=== PATIENT | female | born 1970 | race Caucasian/White ===

== ENCOUNTER → 2017-03-23 | Outpatient (CLI) | payer BC ==
--- NOTE | 2017-03-23 12:07 | WWHP ---
[facility] - HISTORY AND PHYSICAL CHIEF COMPLAINT: The patient is here for her routine gynecologic exam and mammogram. HPI: This is a 46-year-old G0 with an LMP of 2010. The patient is without gynecologic complaints and denies any postmenopausal bleeding. PAST MEDICAL HISTORY: Chronic hypertension and mild gastritis. History of osteopenia. MEDICATIONS: 1. Ziac generic 1 daily. 2. Multivitamin daily. ALLERGIES: Allergies to PENICILLIN. PAST SURGICAL HISTORY: Laparoscopic appendectomy 2007, pilonidal cyst removed 2005. 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 SOCIAL HISTORY: She denies tobacco and drug use and socially drinks alcohol. 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 FAMILY HISTORY: Mother of a pneumonia, which led to a pulmonary embolus at age 37. Grandfather had heart disease. REVIEW OF SYSTEMS: She has lost about 9 pounds over the last year. She denies respiratory, cardiac or GI problems. PHYSICAL EXAM: Blood pressure 124/75, height 5 feet 2 inches, weight 213, BMI 39, temperature 96.5, pulse 64. This is a well-developed, heavyset white female, who is alert and oriented x3, in no acute distress. HEENT is within normal limits. NECK: Supple without mass or thyromegaly. CHEST AND LUNGS: Clear to auscultation. HEART: Regular rate and rhythm. Breasts are without mass or discharge. Axillary exam is negative for adenopathy. BACK: Negative for CVA tenderness. ABDOMEN: Mildly obese, soft, nontender, without palpable masses. PELVIC EXAM: External genitalia has 4 dermal epithelial inclusion cysts in the left labia, each measuring approximately 9 mm. These are nontender and nonerythematous. The patient states she has had them there for a long time and are not painful. External genitalia is otherwise unremarkable. There is minimal atrophy. Cervix and vagina reveals mild atrophy. The cervix is nulliparous and mildly stenotic. There is no evidence of prolapse. The uterus is mid position, nongravid size and nontender. There are no palpable adnexal masses or tenderness. Rectal exam is negative for mass or tenderness and is negative for occult blood. EXTREMITIES: Nontender. IMPRESSION: 1. A 46-year-old menopausal female with benign appearing vulvar inclusion cysts and otherwise unremarkable gynecologic exam. 2. History of osteopenia. PLAN: 1. Pap smear was performed. 2. Self-breast examination was discussed. 3. Mammogram will be done today. 4. Osteoporosis prevention was discussed. I have recommended bone density testing because of her early menopause and because of her history of osteopenia and a slip was given to the patient for this. 5. Diet and exercise were discussed for weight control. 6. She will return in 1 year. MMODL / IJN: [id number] /
--- NOTE | 2017-03-24 10:08 | MM ---
Reason for exam: screening (asymptomatic). Last mammogram was performed 1 year and 1 month ago. History: Patient is postmenopausal and is nulliparous. Took hormonal contraceptives beginning at age 18. Physical Findings: A clinical breast exam by your physician is recommended on an annual basis and results should be correlated with mammographic findings. MG Screening Mammo w CAD Bilateral CC and MLO view(s) were taken. Prior study comparison: February 11, 2016, bilateral MG screening mammo w CAD. February 05, 2015, bilateral MG screening mammo w CAD. The breast tissue is heterogeneously dense. This may lower the sensitivity of mammography. Finding: There are typically benign round, linear calcifications in both breasts. There is a chronic nodularity bilaterally. There is no discrete abnormality. ASSESSMENT: Benign, BI-RAD 2 RECOMMENDATION: Routine screening mammogram of both breasts in 1 year.
== END | disposition home or self-care (01) ==
LOC: WWCWWP 10:32
PROVIDERS: ATTEND Obstetrics & Gynecology
DX: Z12.31 Encounter for screening mammogram for malignant neoplasm of breast (principal)

== ENCOUNTER → 2018-05-25 | Outpatient (CLI) | payer BC ==
[2018-05-25 10:50] VITALS: BP 131/85; PULSE 71; TEMP 98.4; BMI 38.4
--- NOTE | 2018-05-25 11:18 | P.HPOB ---
History of Present Illness H&P Date: 05/25/18 Chief Complaint: The patient is here for her routine gynecologic exam and mammogram. This is a 47-year-old G0 within LMP 2010. The patient is without gynecologic complaints and denies any postmenopausal bleeding. The patient had an early bone density test done in 2010 because of the early menopausal change and this showed osteopenia. Repeating the bone density testing was recommended last year , but she did not have it done. She states she will do it this year. Review of Systems The patient has lost 3 pounds over the last year. She denies respiratory, cardiac, or G.I. problems. Past Medical History Past Medical History: Hypertension Additional Past Medical History / Comment(s): Osteopenia. 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 Early menopause at age 40. 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 Medications and Allergies Home Medications Medication Instructions Recorded Confirmed Type Bisoprolol-Hctz 10-6.25 mg [Ziac 10 mg PO DAILY 05/25/18 05/25/18 History 10-6.25 MG] Allergies Allergy/AdvReac Type Severity Reaction Status Date / Time Penicillins AdvReac Severe Rash/Hives Unverified 05/25/18 10:41 Exam Vital Signs Temp Pulse BP 05/25/18 10:46 98.4 F 71 131/85 Intake and Output 05/24/18 05/25/18 05/25/18 22:59 06:59 14:59 Other: Weight 95.254 kg Height 5'2", weight 210 pounds, BMI 38.4. This is a well-developed well-nourished heavyset white female who is alert and oriented times 3 in no acute distress. HEENT: Within normal limits. NECK: Supple without mass or thyromegaly. CHEST AND LUNGS: Clear to auscultation. HEART: Regular rate and rhythm. BREASTS: Are without mass or discharge. AXILLARY EXAM: Negative for adenopathy. BACK: Negative for CVA tenderness. ABDOMEN: Soft, mildly obese, nontender, without palpable masses. PELVIC EXAM: external genitalia has 4 epithelial inclusion cysts in the left labia, each measuring approximately 9 mm. These are nontender and non- erythematous. This is unchanged from her previous exam and she states she has had them for a long time. Cervix and vagina appear normal with mild atrophy. There is no unusual discharge. There is no evidence of prolapse. The uterus is midposition, nongravid size and nontender. There are no palpable adnexal masses or tenderness. RECTAL EXAM: negative for mass or tenderness and is negative for occult blood. EXTREMITIES: Nontender. IMPRESSION: 1. 47-year-old menopausal female with stable benign appearing vulvar inclusion cysts and otherwise unremarkable gynecologic exam. 2. History of osteopenia. 3. History of early menopause at age 40. PLAN: 1. Pap smear was deferred since she had a normal one less than 2 years ago. 2. Self breast awareness was discussed with the patient. 3. Screening mammogram will be done today. 4. Osteoporosis prevention was discussed. I have stressed the importance of adequate calcium, vitamin D and regular exercise. Recommended amounts of calcium and vitamin D were also discussed. I have recommended repeating the bone density test since it has been more than 7 years since her last one, which showed osteopenia. The order slip was given to the patient for this. 5. She will return in one year.
--- NOTE | 2018-05-28 13:03 | MM ---
Reason for exam: screening (asymptomatic). Last mammogram was performed 1 year and 2 months ago. History: Patient is postmenopausal and is nulliparous. Took hormonal contraceptives beginning at age 18. MG Screening Mammo w CAD Bilateral CC and MLO view(s) were taken. Prior study comparison: March 23, 2017, bilateral MG screening mammo w CAD. February 11, 2016, bilateral MG screening mammo w CAD. The breast tissue is heterogeneously dense. This may lower the sensitivity of mammography. Chronic nodularity in the right breast. There are increasing secretory calcifications upper outer quadrants of both breasts. No significant changes when compared with prior studies. ASSESSMENT: Benign, BI-RAD 2 RECOMMENDATION: Routine screening mammogram of both breasts in 1 year.
== END | disposition home or self-care (01) ==
LOC: WWCWWP 10:27
PROVIDERS: ATTEND Obstetrics & Gynecology
DX: Z12.31 Encounter for screening mammogram for malignant neoplasm of breast (principal)
CPT/HCPCS: 77067

== ENCOUNTER → 2019-06-21 | Outpatient (CLI) | payer BC ==
--- NOTE | 2019-06-22 12:10 | MM ---
Reason for exam: screening (asymptomatic). Last mammogram was performed 1 year and 1 month ago. History: Patient is postmenopausal and is nulliparous. Took hormonal contraceptives beginning at age 18. Physical Findings: A clinical breast exam by your physician is recommended on an annual basis and results should be correlated with mammographic findings. MG Screening Mammo w CAD Bilateral CC and MLO view(s) were taken. Prior study comparison: May 25, 2018, bilateral MG screening mammo w CAD. March 23, 2017, bilateral MG screening mammo w CAD. The breast tissue is heterogeneously dense. This may lower the sensitivity of mammography. No suspicious abnormality on the right breast. Left upper outer quadrant middle depth architectural distortion. ASSESSMENT: Incomplete: need additional imaging evaluation, BI-RAD 0 RECOMMENDATION: Special view mammogram of the left breast. If lesion persists on supplemental views, image directed ultrasound is recommended. [facility] will attempt to contact patient to return for supplemental views and ultrasound if indicated.
== END | disposition home or self-care (01) ==
LOC: WWCWWP 10:12
PROVIDERS: ATTEND Obstetrics & Gynecology
DX: Z12.31 Encounter for screening mammogram for malignant neoplasm of breast (principal)
CPT/HCPCS: 77067

== ENCOUNTER → 2019-07-04 | Outpatient (CLI) | payer BC ==
--- NOTE | 2019-07-04 09:52 | MM ---
Reason for exam: additional evaluation requested from abnormal screening. Last mammogram was performed less than 1 month ago. History: Patient is postmenopausal and is nulliparous. Took hormonal contraceptives beginning at age 18. Physical Findings: Nurse did not find any significant physical abnormalities on exam. MG 3D Work Up W/Cad LT Spot compression CC, spot compression MLO, and LM view(s) were taken of the left breast. Prior study comparison: June 21, 2019, bilateral MG screening mammo w CAD. May 25, 2018, bilateral MG screening mammo w CAD. The breast tissue is heterogeneously dense. This may lower the sensitivity of mammography. Benign appearing calcifications in the left breast. The previously seen abnormality resolves on additional views and appears as fibroglandular tissue compatible with summation. No suspicious abnormality. These results were verbally communicated with the patient and result sheet given to the patient on 07/04/19. ASSESSMENT: Benign, BI-RAD 2 RECOMMENDATION: Return to routine screening mammogram schedule for both breasts.
== END ==
LOC: RADMAMWWP 08:40
PROVIDERS: ATTEND Obstetrics & Gynecology
DX: R92.8 Other abnormal and inconclusive findings on diagnostic imaging of breast (principal)
CPT/HCPCS: 77061; 77065

== ENCOUNTER → 2019-07-19 | Outpatient (CLI) | payer BC ==
[2019-07-19 09:36] VITALS: BP 123/85; PULSE 61; RESP 18; TEMP 98.1
--- NOTE | 2019-07-19 10:11 | P.HPOB ---
History of Present Illness H&P Date: 07/19/19 Chief Complaint: The patient is here for her routine gynecologic exam. This is a 48-year-old G0 with an LMP of 2010. The patient is without gynecologic complaints and denies any postmenopausal bleeding. Review of Systems The patient has gained 22 pounds over the last year. She attributes this to the less activity. She denies respiratory, cardiac, or G.I. problems. Past Medical History Past Medical History: Hypertension Additional Past Medical History / Comment(s): Osteopenia. 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 Early menopause at age 40. 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 Medications and Allergies Home Medications Medication Instructions Recorded Confirmed Type Bisoprolol-Hctz 10-6.25 mg [Ziac 10 mg PO DAILY 05/25/18 07/19/19 History 10-6.25 MG] Multivitamin [Multivitamins Adult 1 each PO DAILY 07/19/19 07/19/19 History Gummies] Allergies Allergy/AdvReac Type Severity Reaction Status Date / Time Penicillins AdvReac Severe Rash/Hives Unverified 07/19/19 09:36 Exam Vital Signs Temp Pulse Resp BP Pulse Ox 07/19/19 09:26 98.1 F 61 18 123/85 98 Intake and Output 07/18/19 07/19/19 07/19/19 22:59 06:59 14:59 Other: Weight 105.233 kg Height 5 feet 4 inches, weight 232 pounds, BMI 39.8. This is a well-developed well-nourished heavyset white female who is alert and oriented times 3 in no acute distress. HEENT: Within normal limits. NECK: Supple without mass or thyromegaly. CHEST AND LUNGS: Clear to auscultation. HEART: Regular rate and rhythm. BREASTS: Are without mass or discharge. AXILLARY EXAM: Negative for adenopathy. BACK: Negative for CVA tenderness. ABDOMEN: Soft, obese, nontender, without palpable masses. PELVIC EXAM: The external genitalia reveals four benign-appearing inclusion cysts each measuring about 9 mm. These are stable from her previous exam. Cervix and vagina appear normal. There is no unusual discharge. There is no evidence of prolapse. The uterus is midposition, nongravid size and nontender. There are no palpable adnexal masses or tenderness. RECTAL EXAM: negative for mass or tenderness and is negative for occult blood. EXTREMITIES: Nontender. IMPRESSION: 1. 48-year-old menopausal female with normal gynecologic exam. 2. History of osteopenia. 3. Weight gain. PLAN: 1. Pap smear was performed. 2. Self breast awareness was discussed with the patient. 3. Screening mammogram was recently done on 06/21/2019 and did require a left breast workup which was benign. Mammogram will be repeated in 1 year. 4. Osteoporosis prevention was discussed. I have stressed the importance of adequate calcium, vitamin D and regular exercise. Recommended amounts of calcium and vitamin D were also discussed. I recommended repeating a bone density testing and the order slip was given to the patient for this. 5. Weight control was discussed. I have stressed the importance of good nutrition and regular exercise. I have also recommended that she not skip meals and she should try to get adequate amounts of fiber in her diet. 6. She was advised to return in one year for her annual well woman exam.
--- NOTE | 2019-08-01 12:00 | P.PN ---
Progress Note - Text Progress Note Date: 08/01/19 OUTPATIENT FOLLOW-UP NOTE TEST(S)/RESULTS: Pap smear on 07/19/2019 was negative. METHOD OF NOTIFICATION: A message was left on the patient's voice mail with this result results. PATIENT COMMENTS: DIAGNOSIS: Negative Pap smear DISCUSSION: PLAN: She was advised to return in one year for her annual well woman exam.
== END | disposition home or self-care (01) ==
LOC: WWCWWP 09:10
PROVIDERS: ATTEND Obstetrics & Gynecology
DX: Z53.9 Procedure and treatment not carried out, unspecified reason (principal)

== ENCOUNTER → 2020-10-01 | Outpatient (CLI) | payer BC ==
[2020-10-01 10:48] VITALS: BP 135/90; PULSE 74; RESP 18; TEMP 98.1
--- NOTE | 2020-10-01 11:31 | P.HPOB ---
History of Present Illness H&P Date: 10/01/20 Chief Complaint: The patient is here for her routine gynecologic exam and ma mmogram. This is a 58-year-old G0 with an LMP of 2010. The patient is without gynecologic complaints and denies any postmenopausal bleeding. Review of Systems The patient's weight has been stable over the last year. She denies respiratory, cardiac, or G.I. problems. Past Medical History Past Medical History: Hypertension Additional Past Medical History / Comment(s): Osteopenia. 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 Early menopause at age 40. 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 Medications and Allergies Home Medications Medication Instructions Recorded Confirmed Type Bisoprolol-Hctz 10-6.25 mg [Ziac 10 mg PO DAILY 05/25/18 07/19/19 History 10-6.25 MG] Multivitamin [Multivitamins Adult 1 each PO DAILY 07/19/19 07/19/19 History Gummies] Allergies Allergy/AdvReac Type Severity Reaction Status Date / Time Penicillins AdvReac Severe Rash/Hives Unverified 10/01/20 10:48 Exam Vital Signs Temp Pulse Resp BP Pulse Ox 10/01/20 10:42 98.1 F 74 18 135/90 97 Intake and Output 09/30/20 10/01/20 10/01/20 22:59 06:59 14:59 Other: Weight 105.687 kg Height 5 feet 3 inches, weight 233 pounds, BMI 41.3. This is a well-developed well-nourished heavyset white female who is alert and oriented times 3 in no acute distress. HEENT: Within normal limits. NECK: Supple without mass or thyromegaly. CHEST AND LUNGS: Clear to auscultation. HEART: Regular rate and rhythm. BREASTS: Are without mass or discharge. AXILLARY EXAM: Negative for adenopathy. BACK: Negative for CVA tenderness. ABDOMEN: Soft, nontender, without palpable masses. PELVIC EXAM: External genitalia reveals mild atrophy with 6 left labia majora benign-appearing inclusion cysts each measuring 0.5-1.0 cm. These are nontender and noninflamed. Cervix and vagina appear normal with mild atrophy. There is no unusual discharge. There is no evidence of prolapse. The uterus is midposition, nongravid size and nontender. There are no palpable adnexal masses or tenderness. Bimanual examination is somewhat limited secondary to her size. RECTAL EXAM: Rectovaginal exam is negative for mass or tenderness and is negative for occult blood. EXTREMITIES: Nontender. IMPRESSION: 1. 50-year-old menopausal female with normal gynecologic exam. 2. History of osteopenia. PLAN: 1. Pap smear was deferred since since she had a normal one on 07/19/2019. 2. Self breast awareness was discussed with the patient. 3. Screening mammogram will be done today. 4. Osteoporosis prevention was discussed. I have stressed the importance of adequate calcium, vitamin D and regular exercise. Recommended amounts of calcium and vitamin D were also discussed. I have recommended repeating bone density testing since her last one was in 2010. The order slip was given to the patient. 5. I have recommended screening colonoscopy. She states she will do this through her primary care physician. 6. She was advised to return in one year for her annual well woman exam.
--- NOTE | 2020-10-04 07:41 | MM ---
Reason for exam: screening (asymptomatic). Last mammogram was performed 1 year and 3 months ago. History: Patient is postmenopausal and is nulliparous. Took hormonal contraceptives beginning at age 18. Physical Findings: A clinical breast exam by your physician is recommended on an annual basis and results should be correlated with mammographic findings. MG 3D Screening Mammo W/Cad Bilateral CC and MLO view(s) were taken. Prior study comparison: July 04, 2019, left breast MG 3d work up w/cad LT. June 21, 2019, bilateral MG screening mammo w CAD. The breast tissue is heterogeneously dense. This may lower the sensitivity of mammography. Benign calcifications. ASSESSMENT: Benign, BI-RAD 2 RECOMMENDATION: Routine screening mammogram of both breasts in 1 year.
== END ==
LOC: WWCWWP 10:34
PROVIDERS: ATTEND Obstetrics & Gynecology
DX: Z01.419 Encounter for gynecological examination (general) (routine) without abnormal findings (principal); I10 Essential (primary) hypertension; Z87.891 Personal history of nicotine dependence; Z88.0 Allergy status to penicillin; Z12.31 Encounter for screening mammogram for malignant neoplasm of breast; Z87.39 Personal history of other diseases of the musculoskeletal system and connective tissue
CPT/HCPCS: 77063; 77067

== ENCOUNTER → 2021-10-13 | Outpatient (CLI) | payer BC ==
--- NOTE | 2021-10-13 19:29 | BD ---
EXAMINATION TYPE: Axial Bone Density DATE OF EXAM: 10/13/2021 COMPARISON: NONE CLINICAL HISTORY: 51 years year old Female. ICD-10 CODE: Z78.0 POST MENOPAUSAL STATUS Height: 65707.2 Weight: FRAX RISK QUESTIONS: Alcohol (3 or more units per day): NO Family History (Parent hip fracture): NO Glucocorticoids (More than 3mos): NO History of Fracture in Adulthood: NO Secondary Osteoporosis: 1. Type 1 Diabetes: NO 2. Hyperthyroidism: NO 3. Menopause before 45: YES AGE 35 4. Malnutrition: NO 5. Chronic liver disease:NO Rheumatoid Arthritis: NO Current Tobacco Use: NO RISK FACTORS HISTORY OF: Hip Fracture (Right/Left): NO Spine Fracture: NO History of Wrist Fracture: NO Surgery to Spine/Hip(right/left)/Wrist (right/left): NO Family History of Osteoporosis: NO Active: NO Diet low in dairy products/other sources of calcium: YES Postmenopausal woman: YES Take estrogen and/or progesterone medications: NO Lost more than 2 inches in height since high school: NO Frequent falls: NO Poor Health: NO Hyperparathyroidism: NO Adrenal Insufficiency: NO MEDICATIONS: Prednisone or other steroids: NO Thyroid Medications: NO Osteoporosis Medications: NO Additional Medications: BP MEDS, MULTI VIT Additional History: EXAM MEASUREMENTS: Bone mineral densitometry was performed using the [employer] System. Bone mineral density as measured about the Lumbar spine is: ----- L1-L4(G/cm2): 1.326 T Score Values are as follows: ----- L1: 0.1 ----- L2: 0.5 ----- L3: 2.2 ----- L4: 1.9 ----- L1-L4: 1.2 BASELINE STUDY Bone mineral density about the R hip (g/cm2): 0.992 Bone mineral density about the L hip (g/cm2): 0.951 T Score values are as follows: -----R Neck: -0.3 -----L Neck: -0.6 -----R Total: 0.4 -----L Total: 0.4 BASELINE STUDY FRAX%s: The graph provided illustrates a 3.6% chance for a major osteoporotic fx and a 0.1% chance fo r the hips probability for fx in 10 years time. IMPRESSION: Normal (Values between +1 and -1 indicate normal bone mass). Consider repeating this study in 5 year s or sooner if there is some new clinical indication. NOTE: T-SCORE=SD OF THE YOUNG ADULT MEAN.
--- NOTE | 2021-10-14 18:22 | P.PN ---
Progress Note - Text Progress Note Date: 10/14/21 OUTPATIENT FOLLOW-UP NOTE TEST(S)/RESULTS: Bone density test done on 10/13/2021 was normal. METHOD OF NOTIFICATION: The patient was notified by phone. PATIENT COMMENTS: DIAGNOSIS: Normal bone density test. DISCUSSION: She had a previous bone density test at [facility] which had a measurement in the osteopenia range. With this bone density test being normal, we will plan on repeating it in 9 years at age 60. I have stressed the importance of adequate calcium, vitamin D, and regular exercise. PLAN: As above. Well woman examination is scheduled for November 2021.
== END | disposition home or self-care (01) ==
LOC: RADBDWWP 07:58
PROVIDERS: ATTEND Obstetrics & Gynecology
DX: Z78.0 Asymptomatic menopausal state (principal)
CPT/HCPCS: 77080

== ENCOUNTER → 2021-12-02 | Outpatient (CLI) | payer BC ==
[2021-12-02 16:14] VITALS: BP 123/85; PULSE 72; RESP 15; TEMP 98.3
--- NOTE | 2021-12-02 17:16 | P.HPOB ---
History of Present Illness H&P Date: 12/02/21 Chief Complaint: The patient is here for her routine gynecologic exam and ma mmogram. This is a 51-year-old G0 with an LMP of 2010. The patient is without gynecologic complaints and denies any postmenopausal bleeding. Review of Systems The patient's weight has been stable over the last year. She denies respiratory, cardiac, or G.I. problems. 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 Early menopause at age 40. History of Any Multi-Drug Resistant Organisms: None Reported Past Surgical History: Appendectomy Additional Past Surgical History / Comment(s): Pilonidal cyst on tail bone. Past Psychological History: No Psychological Hx Reported Smoking Status: Former smoker Past Alcohol Use History: Occasional (7-10 per week) Additional Past Alcohol Use History / Comment(s): Quit smoking at age 35. 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 Medications and Allergies Home Medications Medication Instructions Recorded Confirmed Type Bisoprolol-Hctz 10-6.25 mg [Ziac 10 mg PO DAILY 05/25/18 12/02/21 History 10-6.25 MG] Multivitamin [Multivitamins Adult 1 each PO DAILY 07/19/19 12/02/21 History Gummies] Allergies Allergy/AdvReac Type Severity Reaction Status Date / Time Penicillins AdvReac Severe Rash/Hives Unverified 12/02/21 16:10 Exam Vital Signs Temp Pulse Resp BP Pulse Ox 12/02/21 16:11 98.3 F 72 15 123/85 98 Intake and Output 12/02/21 12/02/21 12/02/21 06:59 14:59 22:59 Other: Weight 106.141 kg Height 5 feet 2 inches, weight 234 pounds, BMI 42.8. This is a well-developed well-nourished heavyset white female who is alert and oriented times 3 in no acute distress. HEENT: Within normal limits. NECK: Supple without mass or thyromegaly. CHEST AND LUNGS: Clear to auscultation. HEART: Regular rate and rhythm. BREASTS: Are without mass or discharge. AXILLARY EXAM: Negative for adenopathy. BACK: Negative for CVA tenderness. ABDOMEN: Soft, obese, nontender, without palpable masses. PELVIC EXAM: External genitalia reveals mild atrophy with 7 the left labia majora benign appearing inclusion cysts each measuring 0.4-0.8 cm. These are nontender and there is no significant change from her previous exam. She states that these generally do not cause her any problems. Cervix and vagina appear normal with minimal atrophy. There is no unusual discharge. There is no evidence of prolapse. The uterus is midposition, nongravid size and nontender. There are no palpable adnexal masses or tenderness. RECTAL EXAM: Rectovaginal exam is negative for mass or tenderness and is negative for occult blood. EXTREMITIES: Nontender. IMPRESSION: 1. 51-year-old menopausal female with stable benign-appearing left labial inclusion cysts which seems stable from her last year's exam. Otherwise unremarkable gynecologic exam. PLAN: 1. Pap smear cotest was performed. 2. Self breast awareness was discussed with the patient. We have also discussed symptoms associated with inflammatory breast cancer. 3. Screening mammogram will be done today. 4. Osteoporosis prevention was discussed. I have stressed the importance of adequate calcium, vitamin D and regular exercise. Recommended amounts of calcium and vitamin D were also discussed. Her most recent bone density test done on 10/13/2021 was normal. We will plan on repeating this at age 60. 5. She has completed her Covid vaccination series and did receive a booster. 6. She is scheduled for her first colonoscopy in January 2022. 7. She was advised to return in one year for her annual well woman exam.
--- NOTE | 2021-12-03 18:00 | MM ---
Reason for Exam: Screening (asymptomatic). Last mammogram was performed 1 year(s) and 2 month(s) ago. Patient History: Menarche at age 12. Patient has no children. Postmenopausal. Hormonal Contraceptives, from age 18 until age 35. Risk Values: Vee 5 year model risk: 1.1%. NCI Lifetime model risk: 9.7%. Prior Study Comparison: 06/21/2019 Bilateral Screening Mammogram, [facility]. 07/04/2019 Left Diagnostic Mammogram, [facility]. 10/01/2020 Bilateral Screening Mammogram, [facility]. Tissue Density: The breast tissue is heterogeneously dense. This may lower the sensitivity of mammography. Findings: Analyzed By CAD. There is no suspicious group of microcalcifications or new suspicious mass in either breast. Stable benign calcifications bilaterally. No significant change from prior examinations. Overall Assessment: Benign, BI-RAD 2 Management: Screening Mammogram of both breasts in 1 year. A clinical breast exam by your physician is recommended on an annual basis and results should be correlated with mammographic findings. Electronically signed and approved by: Roe Rojas D.O.
== END | disposition home or self-care (01) ==
LOC: WWCWWP 16:00
PROVIDERS: ATTEND Obstetrics & Gynecology
DX: Z12.31 Encounter for screening mammogram for malignant neoplasm of breast (principal)
CPT/HCPCS: 77063; 77067

== ENCOUNTER 2022-01-21 09:44 | Day surgery (SDC) | payer BC ==
[~2022-01-21 09:44] MED LIST: LACTATED RINGERS 1,000 ML IV SCH; LIDOCAINE 1% (10MG/ML) FOR IV START INTRADERMA PRN
[2022-01-21 10:27] VITALS: TEMP 97.4
[2022-01-21] MEDS ORDERED: PROPOFOL 10 MG/ML 20 ML VIAL IV ONE (11:08)
--- NOTE | 2022-01-21 11:26 | P.PCN ---
Date of Procedure: 01/21/22 Procedure(s) Performed: BRIEF HISTORY: Patient is a 51-year-old pleasant female scheduled for an elective colonoscopy as a part of screening for colorectal neoplasia. PROCEDURE PERFORMED: Colonoscopy with biopsy and snare polypectomy. PREOPERATIVE DIAGNOSIS: Screening for colon cancer. IV sedation per Anesthesia. PROCEDURE: After informed consent was obtained, the patient, was brought into the endoscopy unit. IV sedation was administered by Anesthesia under continuous monitoring. Digital rectal examination was normal. Initially the Olympus CF-160 flexible video colonoscope was then inserted in the rectum, gradually advanced into the cecum without any difficulty. Careful examination was performed as the scope was gradually being withdrawn. Ileocecal valve and the appendiceal orifice were visualized and appeared normal. Prep was excellent. Mucosa of the cecum, had a 3 mm sessile polyp removed by cold biopsy. In the ascending colon there was another 3 mm polyp that was removed by cold biopsy. In the proximal transverse colon there was a 5-6 mm flat polyp removed by snare polypectomy. Rest of the ascending colon, transverse colon, descending colon, sigmoid colon, and rectum appeared normal. In the proximal rectum there was a 1 m polyp removed by snare polypectomy. Retroflexion was performed in the rectum and no lesions were seen. The patient tolerated the procedure well. IMPRESSION: 3 mm cecal polyp status post cold biopsy 3 mm ascending colon polyp status post cold biopsy 5 mm transverse colon polyp status post snare polypectomy 1 cm proximal rectal polyp status post polypectomy RECOMMENDATIONS: Findings of this examination were discussed with the patient as her family. She was advised to follow with the biopsy results. If the biopsy reveals adenoma she can have a repeat colonoscopy in 3 years..
[2022-01-21 11:38] VITALS: RESP 18
[2022-01-21 11:45] VITALS: BP 132/67; PULSE 68
== END 2022-01-21 12:08 | disposition home or self-care (01) ==
LOC: ORWHC2ENDO 09:44
PROVIDERS: ATTEND Internal Medicine Gastroenterology
DX: Z12.11 Encounter for screening for malignant neoplasm of colon (principal); K63.5 Polyp of colon; D12.8 Benign neoplasm of rectum; I10 Essential (primary) hypertension; Z79.899 Other long term (current) drug therapy; Z88.0 Allergy status to penicillin
CPT/HCPCS: 88305; 45380; 45385; J2704

== ENCOUNTER → 2022-12-08 | Outpatient (CLI) | payer BC ==
[2022-12-08 11:03] VITALS: BP 112/79; PULSE 66; RESP 17; TEMP 98.3
--- NOTE | 2022-12-08 11:29 | P.HPOB ---
History of Present Illness H&P Date: 12/08/22 Chief Complaint: The patient is here for her routine gynecologic exam and ma mmogram. This is a 52-year-old G0 with an LMP of 2010. The patient is without gynecologic complaints. Review of Systems The patient's weight has been stable over the last year. She denies respiratory, cardiac, or G.I. problems. 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 Early menopause at age 40. History of Any Multi-Drug Resistant Organisms: None Reported Past Surgical History: Appendectomy Additional Past Surgical History / Comment(s): Pilonidal cyst on tail bone. Past Psychological History: No Psychological Hx Reported Smoking Status: Former smoker Past Alcohol Use History: Occasional (4-6 per week.) Additional Past Alcohol Use History / Comment(s): Quit smoking at age 35. 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 Medications and Allergies Home Medications Medication Instructions Recorded Confirmed Type Multivitamin [Multivitamins Adult 1 each PO DAILY 07/19/19 12/08/22 History Gummies] Bisoprolol-Hctz 5-6.25 mg [Ziac 1 tab PO QAM 01/20/22 12/08/22 History 5-6.25 MG] Allergies Allergy/AdvReac Type Severity Reaction Status Date / Time Penicillins AdvReac Severe Rash/Hives Unverified 12/08/22 10:47 Exam Vital Signs Temp Pulse Resp BP Pulse Ox 12/08/22 11:01 98.3 F 66 17 112/79 96 Intake and Output 12/07/22 12/08/22 12/08/22 22:59 06:59 14:59 Other: Weight 105.687 kg Height 5 feet 3 inches, weight 233 pounds, BMI 41.3. This is a well-developed well-nourished heavyset white female who is alert and oriented times 3 in no acute distress. HEENT: Within normal limits. NECK: Supple without mass or thyromegaly. CHEST AND LUNGS: Clear to auscultation. HEART: Regular rate and rhythm. BREASTS: Are without mass or discharge. AXILLARY EXAM: Negative for adenopathy. BACK: Negative for CVA tenderness. ABDOMEN: Soft, nontender, without palpable masses. PELVIC EXAM: External genitalia reveals minimal atrophy with multiple left labial inclusion cysts which appears stable from her previous exam. On the left side she has 7 inclusion cysts each measuring between 4 and 9 mm. These appeared benign and are nonerythematous and nontender. She states the do not cause any significant problems, but has felt them when she rides a bike. Cervix and vagina appear normal with mild atrophy. There is no unusual discharge. There is no evidence of prolapse. The uterus is midposition, nongravid size and nontender. There are no palpable adnexal masses or tenderness. RECTAL EXAM: Rectovaginal exam is negative for mass or tenderness and is negative for occult blood. EXTREMITIES: Nontender. IMPRESSION: 1. 52-year-old menopausal female with benign left labial inclusion cysts, stable from her previous exam. PLAN: 1. Pap smear was deferred since she had a negative Pap smear cotest on 11/08. 2. Self breast awareness was discussed with the patient. We have also discussed symptoms associated with inflammatory breast cancer. 3. Screening mammogram will be done today. 4. Osteoporosis prevention was discussed. She had a normal bone density test done on 10/13/2021. We will plan on repeating this at age 60. 5. Conservative management for the labial inclusion cysts. If these are causing problems or if she notices significant change, she was instructed to make another appointment to see me. 6. She was advised to return in one year for her annual well woman exam and as needed.
--- NOTE | 2022-12-09 07:23 | MM ---
Reason for Exam: Screening (asymptomatic). Last mammogram was performed 1 year(s) and 1 month(s) ago. Patient History: Menarche at age 12. Patient has no children. Postmenopausal. Hormonal Contraceptives, from age 18 until age 35. Risk Values: Vee 5 year model risk: 1.2%. NCI Lifetime model risk: 9.6%. Prior Study Comparison: 07/04/2019 Left Diagnostic Mammogram, [facility]. 10/01/2020 Bilateral Screening Mammogram, [facility]. 12/02/2021 Bilateral MG 3D screening mammo w/cad, [facility]. Tissue Density: The breast tissue is heterogeneously dense. This may lower the sensitivity of mammography. Findings: Analyzed By CAD. There is no suspicious group of microcalcifications or new suspicious mass in either breast. Stable benign calcifications bilaterally. No significant change from prior examinations. Overall Assessment: Benign, BI-RAD 2 Management: Screening Mammogram of both breasts in 1 year. A clinical breast exam by your physician is recommended on an annual basis and results should be correlated with mammographic findings. Note on Vee scores and lifetime risk: 1. A Vee score greater than 3% is considered moderate risk. If this is the case, consider specialist referral to assess eligibility for a risk reducing agent. If overall lifetime risk for the development of breast cancer is 20% or higher, the patient may qualify for future screening with alternating mammogram and breast MRI. Electronically signed and approved by: Roe Rojas D.O.
== END ==
LOC: WWCWWP 10:39
PROVIDERS: ATTEND Obstetrics & Gynecology
DX: I10 Essential (primary) hypertension (principal); L72.0 Epidermal cyst; Z01.419 Encounter for gynecological examination (general) (routine) without abnormal findings; Z78.0 Asymptomatic menopausal state; Z87.891 Personal history of nicotine dependence; Z88.0 Allergy status to penicillin; Z98.890 Other specified postprocedural states
CPT/HCPCS: 77063; 77067

== ENCOUNTER → 2023-11-10 | Outpatient (CLI) | payer BC ==
[2023-11-10 10:41] LABS: HCT 46.2 % (37.2-50.0); MCH 32.1 pg (27.0-32.0); MCHC 34.6 g/dL (32.0-37.0); MCV 92.6 FL (80.0-97.0); Mean Platelet Volume 11.3 FL (9.5-12.2); NRBC Per 100 WBC 0 X 10*3/uL (0.00-0.01); Platelet Count 183 X 10*3/uL (140-440); RBC 4.99 X 10*6/uL (4.10-5.60); RDW 12.2 % (11.5-14.5); WBC 5.42 X 10*3/uL (4.50-10.00)
[2023-11-10 10:54] LABS: Blood Urea Nitrogen 9.7 mg/dL (9.0-27.0); Carbon Dioxide 26.5 mmol/L (21.6-31.8); Chloride 104 mmol/L (96-109); Potassium 4.3 mmol/L (3.5-5.5); Sodium 142 mmol/L (135-145)
== END | disposition home or self-care (01) ==
LOC: LABPAT 07:01
PROVIDERS: ATTEND Internal Medicine
DX: Z01.812 Encounter for preprocedural laboratory examination (principal); R06.02 Shortness of breath
CPT/HCPCS: 36415; 80051; 82565; 84520; 85027

== ENCOUNTER 2023-11-19 11:54 | Day surgery (SDC) | payer BC ==
[2023-11-17 10:04] VITALS: BMI 42.0
[~2023-11-19 11:54] MED LIST changes: +ALPRAZolam 0.25 MG TAB PO PRN; +ALPRAZolam 0.5 MG TAB PO PRN; +HEPARIN SODIUM,PORCINE (1 ML) 2,500 UNIT in SODIUM CHLORIDE 0.9% 250 ML IRRIGATION PRN; +HEPARIN SODIUM,PORCINE 10,000 UNIT in SODIUM CHLORIDE 0.9% 1,000 ML IRRIGATION PRN; -LACTATED RINGERS 1,000 ML IV SCH; -LIDOCAINE 1% (10MG/ML) FOR IV START INTRADERMA PRN; +NITROGLYCERIN SL TABS 0.4 MG TAB SUBLINGUAL PRN
[2023-11-19] MEDS: SODIUM CHLORIDE 0.9% 1,000 ML in EMPTY BAG 1 BAG IV SCH (12:15)
[2023-11-19] MEDS: IV FLUID CONTINUATION 1,000 ML IV ONE (12:15)
[2023-11-19] MEDS: ASPIRIN 325 MG TAB PO STA (12:18)
[2023-11-19] MEDS ORDERED: fentaNYL (PF) 50 MCG/ML 2 ML AMP ONE ×2 (13:35→16:06)
[2023-11-19] MEDS ORDERED: HEPARIN SODIUM 1,000 UN/ML (10ML VL) ONE (13:35)
[2023-11-19] MEDS ORDERED: LIDOCAINE 1% INJ 10MG/ML (20 ML MDV) ONE (13:35)
[2023-11-19] MEDS ORDERED: VERAPAMIL 2.5 MG/ML 2 ML AMP ONE (13:35)
[2023-11-19] MEDS: fentaNYL (PF) 50 MCG/ML 2 ML AMP IVP ONE ×2 (16:17→16:22)
[2023-11-19] MEDS: MIDAZOLAM 2 MG/2 ML VIAL IVP ONE ×2 (16:17→16:22)
[2023-11-19] MEDS: LIDOCAINE 1% INJ 10MG/ML (20 ML MDV) SQ ONE (16:19)
[2023-11-19] MEDS: VERAPAMIL SYRINGE (5 MG/10 ML) INTRAARTER ONE ×2 (16:19→16:25)
[2023-11-19] MEDS: HEPARIN SODIUM 1,000 UN/ML (10ML VL) IVP ONE (16:22)
[2023-11-19] MEDS: IOPAMIDOL-370 100ML BTL INJ ONE (16:28)
--- NOTE | 2023-11-19 23:52 | P.CARDCATH ---
Description of Procedure: PROCEDURES PERFORMED: Left heart catheterization, bilateral coronary angiography, ultrasound guided arterial access INDICATION: abnormal stress test CONSENT:I have discussed the risks, benefits and alternative therapies for the above-mentioned procedure and for both sedation/analgesia as well as necessary blood product administration, if indicated, as they pertain to this patient. The patient has indicated understanding and acceptance of the risks and procedures discussed. PROCEDURE: After the risks, benefits and alternatives of the above mentioned procedure explained in detail with the patient, informed consent was obtained. Patient was taken to the catheterization lab and prepped and draped in usual fashion. Ultrasound guidance was used to assess for arterial access. 1% lidocaine was used to anesthetize the right radial artery. A 6-Stateless sheath was placed in the right radial artery using modified Seldinger technique and ultrasound guidance. Left coronary angiography was performed with a 5-Stateless JL 3.5 catheter and right coronary angiography was performed with a 5-Stateless FR5 catheter in various views. A 5-Stateless FR5 catheter was inserted into the left ventricle and pressure measurements were obtained. The right radial sheath was removed and a TR band was placed with hemostasis achieved. The patient to lerated the procedure well. Patient was transported back to the post catheterization holding area in stable condition. Conscious Sedation: Patient was monitored under the direct supervision of myself for conscious sedation using Versed and fentanyl for a total duration of 9 minutes HEMODYNAMICS: Ao: 128/68 LV: 122/1, LVEDP 4 SELECTIVE CORONARY ARTERIOGRAPHY: LEFT MAIN: The left main is a large caliber vessel which bifurcates into the LAD and circumflex. There is no significant stenosis. LEFT ANTERIOR DESCENDING CORONARY ARTERY: LAD is a large caliber vessel which wraps around to the apex. There is no significant stenosis. LEFT CIRCUMFLEX CORONARY ARTERY: Left circumflex is a moderate caliber vessel without significant stenosis. RIGHT CORONARY ARTERY: The right coronary artery is a large caliber vessel which gives off a PDA and PLV branch and is the dominant vessel. There is no significant stenosis. FINAL IMPRESSION: 1. Normal coronary arteries as described above. 2. Low normal left sided filling pressures PLAN: 1. Aggressive risk factor modification per most recent ACC/AHA guidelines. 2. Follow-up in the office in 1-2 weeks.
[2023-11-20 07:56] VITALS: BP 112/75; PULSE 79; RESP 17; TEMP 98
--- NOTE | 2023-11-20 09:31 | P.DS ---
Providers Attending physician: Domingo Drake DO Primary care physician: [facility] [employer] Course: patient underwent diagnostic heart catheterization 11/19/2023 from the right radial approach. This showed normal coronary arteries. Due to logistical issues, patient having catheterization later in the day she was kept overnight and monitored. She has small amount of bruising of her right radial site however no significant hematoma in 2+ radial pulse. She denies any chest pain o r pressure. She is stable for discharge home with outpatient follow-up. Plan - Discharge Summary Discharge Rx Participant: No New Discharge Prescriptions: No Action Multivitamin [Multivitamins Adult Gummies] 1 each PO DAILY Atorvastatin [Lipitor] 10 mg PO HS Discharge Medication List Multivitamin [Multivitamins Adult Gummies] 1 each PO DAILY 07/19/19 [History] Atorvastatin [Lipitor] 10 mg PO HS 11/17/23 [History] Follow up Appointment(s)/Referral(s): Domingo Drake DO [STAFF PHYSICIAN] - 11/26/23 9:30 am Patient Instructions/Handouts: Moderate Sedation (DC), After Radial Heart Catheterization (GEN), Left Heart Catheterization (DC) Activity/Diet/Wound Care/Special Instructions: No flexing/bending/pushing/pulling/lifting greater than 5 pounds x5 days No submersion of right wrist in pools/hot tubs/bath tubs/dishwater x3 days No driving x2 days Follow up Fall risk/safety precautions No changes with home medications Encourage fluids x2 days
== END 2023-11-20 11:20 | disposition home or self-care (01) ==
LOC: CATHCVL 11:54 → 6NMEDSUR 16:39 → CATHCVL 11-20 11:20
PROVIDERS: ATTEND Internal Medicine
DX: R06.02 Shortness of breath (principal); R94.39 Abnormal result of other cardiovascular function study
CPT/HCPCS: 93458; 99152; C1769; C1894; J2250; J2001; J3010; J1644; Q9967

== ENCOUNTER → 2024-01-04 | Outpatient (CLI) | payer BC ==
[2024-01-04 12:53] VITALS: BP 135/87; PULSE 92; RESP 16; TEMP 98.5
--- NOTE | 2024-01-04 13:24 | P.HPOB ---
History of Present Illness H&P Date: 01/04/24 Chief Complaint: The patient is here for her routine gynecologic exam and ma mmogram. This is a 53-year-old G0 with an LMP of 2010. The patient is without gynecologic complaints and denies any postmenopausal bleeding. Review of Systems The patient has lost 7 pounds over the last year. She has been trying to lose weight. She denies respiratory, cardiac, or G.I. problems. 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 Early menopause at age 40. History of Any Multi-Drug Resistant Organisms: None Reported Past Surgical History: Appendectomy Additional Past Surgical History / Comment(s): Pilonidal cyst on tail bone. Colonoscopy 2021 (next after 5yr). Past Anesthesia/Blood Transfusion Reactions: Postoperative Nausea & Vomiting (PONV) Past Psychological History: No Psychological Hx Reported Smoking Status: Former smoker Past Alcohol Use History: Occasional Additional Past Alcohol Use History / Comment(s): Quit smoking at age 35. Past Drug Use History: None Reported - Past Family History Mother Additional Family Medical History / Comment(s): of pneumonia with pulmonary embolus. Medications and Allergies Home Medications Medication Instructions Recorded Confirmed Type Multivitamin [Multivitamins Adult 1 each PO DAILY 07/19/19 01/04/24 History Gummies] Atorvastatin [Lipitor] 10 mg PO HS 11/17/23 01/04/24 History Allergies Allergy/AdvReac Type Severity Reaction Status Date / Time No Known Allergies Allergy Verified 01/04/24 12:50 Exam Vital Signs Temp Pulse Resp BP Pulse Ox 01/04/24 12:51 98.5 F 92 16 135/87 98 Intake and Output 01/03/24 01/04/24 01/04/24 22:59 06:59 14:59 Other: Weight 102.512 kg Height 5 feet 2 inches, weight 226 pounds, BMI 41.3. This is a well-developed well-nourished heavyset white female who is alert and oriented times 3 in no acute distress. HEENT: Within normal limits. NECK: Supple without mass or thyromegaly. CHEST AND LUNGS: Clear to auscultation. HEART: Regular rate and rhythm. BREASTS: Are without mass or discharge. AXILLARY EXAM: Negative for adenopathy. BACK: Negative for CVA tenderness. ABDOMEN: Soft, nontender, without palpable masses. PELVIC EXAM: External genitalia reveals multiple left labia majora inclusion cysts, each measuring approximately 5 to 9 mm. On the left side there are approximately 8 inclusion cysts. On the right side there is 1 small inclusion cyst measuring approximately 3-4 mm. The inclusion cysts are noninflamed and nontender. The external genitalia reveals mild atrophy as well. Cervix and vagina appear normal mild atrophy. There is no unusual discharge. There is no evidence of prolapse. The uterus is midposition, nongravid size and nontender. There are no palpable adnexal masses or tenderness. Bimanual examination is somewhat limited secondary to her size. RECTAL EXAM: Vaginal exam is negative for mass or tenderness and is negative for occult blood. EXTREMITIES: Nontender. IMPRESSION: 1. 53-year-old menopausal female with stable left labial inclusion cysts, which appear benign. PLAN: 1. Pap smear was deferred since she had a negative Pap smear cotest on 12/02/2021. 2. Self breast awareness was discussed with the patient. We have also discussed symptoms associated with inflammatory breast cancer. 3. Screening mammogram will be done today. 4. Osteoporosis prevention was discussed. I have stressed the importance of adequate calcium, vitamin D and regular exercise. Recommended amounts of calcium and vitamin D were also discussed. Plan on repeating a bone density test at age 60. 5. Continue conservative management for her labial inclusion cysts. She will call to be seen if she is having significant changes. 6. She was advised to return in one year for her annual well woman exam.
== END ==
LOC: WWCWWP 12:30
PROVIDERS: ATTEND Obstetrics & Gynecology
DX: Z12.31 Encounter for screening mammogram for malignant neoplasm of breast (principal); L72.0 Epidermal cyst; Z78.0 Asymptomatic menopausal state; Z87.891 Personal history of nicotine dependence